=== PATIENT | female | born 1995 | race African-American/Black ===

== ENCOUNTER 2019-01-23 16:58 | Emergency (ER) | payer SELFPAY ==
[~2019-01-23] VITALS: Ht 154.9 cm; Wt 63.5 kg
[2019-01-23 17:35] VITALS: BP 130/87
[2019-01-23] MEDS ORDERED: MORPHINE SULFATE 4 MG/ML VIAL. IV ONE (18:30)
[2019-01-23] MEDS ORDERED: IV NORMAL SALINE 1000ML BAG 1,000 ML IV ONE (18:30)
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
[2019-01-23 18:56] LABS: BASO # 0.1 x10^3/uL (0.0-0.2); BASO % 1 % (0-3); EOS % 1 % (0-3); HEMATOCRIT 39.1 % (36.0-47.0); HEMOGLOBIN 12.9 g/dL (12.0-15.5); LYMPH # 2.2 x10^3/uL (1.0-4.8); LYMPH % 35 % (24-48); MEAN CORPUSCULAR HEMOGLOBIN 27 pg (25-35); MEAN CORPUSCULAR HGB CONC 33 g/dL (31-37); MEAN CORPUSCULAR VOLUME 81 fL (79-100); MONO # 0.3 x10^3/uL (0.0-1.1); MONO % 4 % (0-9); NEUT # 3.8 x10^3uL (1.8-7.7); NEUT % 60 % (31-73); PLATELET COUNT 364 x10^3/uL (140-400); RED BLOOD COUNT 4.81 x10^6/uL (3.50-5.40); RED CELL DISTRIBUTION WIDTH 13.9 % (11.5-14.5); WHITE BLOOD COUNT 6.4 x10^3/uL (4.0-11.0)
[2019-01-23 19:04] LABS: CALCIUM 9.3 mg/dL (8.5-10.1); CREATININE 0.7 mg/dL (0.6-1.0); GFR 126.6; POTASSIUM 3.8 mmol/L (3.5-5.1)
[2019-01-23] MEDS ORDERED: AMIT10TA PO (19:52)
[2019-01-23] MEDS ORDERED: HYDR-3164 PO (19:52)
[2019-01-27 14:15] LABS: GC PROBE Negative (Negative)
== END 2019-01-23 20:10 | disposition home or self-care (01) ==
LOC: ER 16:58
DX: N93.8 Other specified abnormal uterine and vaginal bleeding (principal); G89.21 Chronic pain due to trauma; M79.605 Pain in left leg; R51 Headache; F41.9 Anxiety disorder, unspecified
CPT/HCPCS: 36415; 80048; 84702; 85025; 87491; 87591; 96374; 99284; J2270; J7030